=== PATIENT | female | born 1965 | race Caucasian/White ===

== ENCOUNTER → 2017-07-30 | Outpatient (CLI) | payer OTHER | END | disposition home or self-care (01) | LOC: CFH 15:43 | PROVIDERS: ATTEND Obstetrics & Gynecology | DX: Z12.31 Encounter for screening mammogram for malignant neoplasm of breast (principal); N85.9 Noninflammatory disorder of uterus, unspecified | CPT/HCPCS: 76830; G0202 ==

== ENCOUNTER 2018-12-27 09:24 | Outpatient (CLI) | payer OTHER ==
[2018-12-27] MEDS ORDERED: PROBIOTIC PO (09:59)
[2018-12-27] MEDS ORDERED: B12 PO (09:59)
[2018-12-27] MEDS ORDERED: PREBIOTIC PO (09:59)
== END 2018-12-27 23:59 | disposition home or self-care (01) ==
LOC: STAR 09:24
PROVIDERS: ATTEND Specialist
DX: Z02.9 Encounter for administrative examinations, unspecified (principal)

== ENCOUNTER 2019-01-04 10:58 | Inpatient (IN) | payer OTHER ==
[~2019-01-04] VITALS: Ht 162.6 cm; Wt 66.3 kg
[~2019-01-04 10:58] MED LIST: B12 PO; PREBIOTIC PO; PROBIOTIC PO
[2019-01-04 11:24] VITALS: BP 111/81
[2019-01-04] MEDS ORDERED: GABAPENTIN 300 MG CAPSULE PO ONE (11:30)
[2019-01-04] MEDS ORDERED: ACETAMINOPHEN 500 MG TABLET PO ONE (11:30)
[2019-01-04 11:33] LABS: HCG UR SG 1.013 (1.003-1.030)
[2019-01-04] MEDS ORDERED: LACTATED RINGERS 1,000 ML IV SCH (11:41)
[2019-01-04] MEDS ORDERED: PROCHLORPERAZINE 5 MG/ML, 2ML IV PRN (13:00)
[2019-01-04] MEDS ORDERED: LABETALOL 5MG/ML, 20ML IV PRN (13:00)
[2019-01-04] MEDS ORDERED: OXYcodone 5 MG/5 ML ORAL.SOL UDC PO PRN ×2 (13:00→18:00)
[2019-01-04] MEDS ORDERED: MEPERIDINE/PF 25MG/0.5ML IVPush PRN (13:00)
[2019-01-04] MEDS ORDERED: FENTANYL PF 100 MCG/2ML IV PRN (13:00)
[2019-01-04] MEDS ORDERED: PROMETHAZINE 25 MG/ML, 1ML IV PRN (13:00)
[2019-01-04] MEDS ORDERED: DIPHENHYDRAMINE 50 MG/ML, 1ML IVPush PRN (13:00)
[2019-01-04] MEDS ORDERED: METOPROLOL 1 MG/ML, 5ML IV PRN (13:00)
[2019-01-04] MEDS ORDERED: hydrALAzine 20 MG/ML, 1ML IV PRN (13:00)
[2019-01-04] MEDS ORDERED: HALOPERIDOL 5 MG/ML IV PRN (13:00)
[2019-01-04] MEDS ORDERED: FENTANYL PF 250 MCG/5ML ONE (13:03)
[2019-01-04] MEDS ORDERED: MIDAZOLAM 1 MG/ML, 2ML ONE (13:48)
[2019-01-04] MEDS ORDERED: CEFAZOLIN 1,000 MG ONE (15:20)
[2019-01-04] MEDS ORDERED: PROPOFOL 10 MG/ML, 20ML ONE (15:20)
[2019-01-04] MEDS ORDERED: NEOSTIGMINE 1 MG/ML, 10ML ONE (15:20)
[2019-01-04] MEDS ORDERED: ONDANSETRON 2MG/ML, 2ML ONE (15:20)
[2019-01-04] MEDS ORDERED: GLYCOPYRROLATE 0.2MG/1ML, 5ML ONE (15:20)
[2019-01-04] MEDS ORDERED: ROCURONIUM 10MG/ML,5ML ONE (15:20)
[2019-01-04] MEDS ORDERED: SUCCINYLCHOLINE 20 MG/ML, 10ML ONE (15:20)
[2019-01-04] MEDS: HYDROmorphone 2 MG/ML, 1ML IVPush PRN ×2 (16:19→16:29)
[2019-01-04] MEDS ORDERED: MEPERIDINE/PF 25MG/ML,1ML ONE (16:21)
[2019-01-04] MEDS ORDERED: OXYcodone 5 MG/5 ML ORAL.SOL UDC ONE (16:22)
[2019-01-04] MEDS ORDERED: HYDROmorphone 1 MG/ML, 1ML ONE (16:22)
[2019-01-04 17:30] VITALS: BP 107/68
[2019-01-04] MEDS ORDERED: ONDANSETRON 2MG/ML, 2ML IVPush PRN (18:00)
[2019-01-04] MEDS ORDERED: MEPERIDINE/PF 50 MG/ML IM PRN (18:00)
[2019-01-04 18:50] VITALS: BP 103/67
[2019-01-04] MEDS ORDERED: HYDROmorphone 2 MG/ML, 1ML IV PRN (19:00)
[2019-01-04 19:30] VITALS: BP 101/66
[2019-01-04] MEDS: KETOROLAC 30 MG/1 ML IVPush SCH (19:58)
[2019-01-04] MEDS: SIMETHICONE 80 MG CHEW TAB PO SCH (19:59)
[2019-01-04] MEDS: POTASSIUM CHLORIDE 20 MEQ in D5%-LACTATED RINGERS 1,000 ML IV SCH (20:28)
[2019-01-04] MEDS ORDERED: IBUPROFEN 600 MG TABLET PO SCH (21:00)
[2019-01-04] MEDS ORDERED: CEFAZOLIN PMX 2GM/50ML 50 ML IVPB ONE (22:00)
[2019-01-04] MEDS ORDERED: CEFAZOLIN PMX 1GM/50ML 50 ML IVPB SCH (22:00)
[2019-01-04 23:45] VITALS: BP 96/61
[2019-01-05] MEDS: POTASSIUM CHLORIDE 20 MEQ in D5%-LACTATED RINGERS 1,000 ML IV SCH ×2 (01:51→05:40)
[2019-01-05] MEDS: KETOROLAC 30 MG/1 ML IVPush SCH ×3 (01:56→13:48)
[2019-01-05 04:15] VITALS: BP 102/64
[2019-01-05 08:00] VITALS: BP 108/68
[2019-01-05] MEDS: SIMETHICONE 80 MG CHEW TAB PO SCH ×2 (08:16→16:00)
[2019-01-05] MEDS ORDERED: IBUP-1222 PO (11:58)
[2019-01-05] MEDS ORDERED: oxycodone (11:59)
[2019-01-05] MEDS ORDERED: OXYC5CAP2 PO (12:01)
[2019-01-05 14:00] VITALS: BP 91/57
[2019-01-05] MEDS ORDERED: ESTR1TAB15 PO (16:09)
[2019-01-05] MEDS ORDERED: IBUPROFEN 600 MG TABLET PO SCH (21:00)
== END 2019-01-05 18:10 | disposition home or self-care (01) | DRG 743 ==
LOC: OUT 10:58 → EDSTATUS 13:30 → 2NW 17:46 → UNDOADMIN 18:03
PROVIDERS: ADMIT Specialist; ATTEND Specialist
PROC: 0UT20ZZ Resection of Bilateral Ovaries, Open Approach (ICD-10-PCS; 2019-01-04)
PROC: 0UT70ZZ Resection of Bilateral Fallopian Tubes, Open Approach (ICD-10-PCS; 2019-01-04)
PROC: 3E0T3BZ Introduction of Anesthetic Agent into Peripheral Nerves and Plexi, Percutaneous Approach (ICD-10-PCS; 2019-01-04)
PROC: 0UT90ZL Resection of Uterus, Supracervical, Open Approach (ICD-10-PCS; principal; 2019-01-04 12:45)
DX: D25.9 Leiomyoma of uterus, unspecified (principal); Z98.891 History of uterine scar from previous surgery; Z88.8 Allergy status to other drugs, medicaments and biological substances
CPT/HCPCS: 36415; J3490; J7121; 81025; 85014; 85018; 88307; G0378; J0690; J1170; J1885; J2175; J2250; J2405; J2704; J2710; J3010; J3480; J0330; J7120